=== PATIENT | male | born 1970 | race American Indian/Alaskan Native ===

== ENCOUNTER 2017-12-13 21:03 | Emergency (ER) | payer SELFPAY ==
--- NOTE | 2017-12-13 22:45 | Cat Scan Report ---
FINAL REPORT EXAM: CT HEAD/BRAIN WO CON HISTORY: MORENO COMPARISON: None available. TECHNIQUE: Axial images obtained skull base through vertex. FINDINGS: No acute intracranial hemorrhage, midline shift or pathologic extra axial fluid collection. Ventricles and cisterns are normal in size and configuration for the patient's age. Mcdowell-white differentiation preserved. Calvarium grossly intact. Ocular globes are grossly unremarkable. Mild to moderate mucosal thickening the paranasal sinuses. Mastoid air cells are clear. IMPRESSION: No grossly acute intracranial abnormality.
[2017-12-14] MEDS ORDERED: NORCO 5/325 PO ONE (01:16)
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
[2017-12-14] MEDS ORDERED: FUL-GLO OP ONE ×2 (01:25→04:42)
[2017-12-14] MEDS ORDERED: TETRACAINE 0.5% ONE (01:26)
[2017-12-14] MEDS ORDERED: BSS ONE (01:26)
[2017-12-14 02:51] VITALS: BP 132/83
[2017-12-14] MEDS ORDERED: BSS OU ONE (04:42)
[2017-12-14] MEDS ORDERED: TETRACAINE 0.5% OU ONE (04:43)
== END 2017-12-14 02:48 | disposition home or self-care (01) ==
LOC: ED 21:03
DX: H57.8 Other specified disorders of eye and adnexa (principal); Z87.891 Personal history of nicotine dependence
CPT/HCPCS: 70450